=== PATIENT | female | born 1955 | race African-American/Black ===

== ENCOUNTER 2017-03-17 23:34 | Emergency (ER) | payer OTHER ==
[~2017-03-17] VITALS: Ht 167.6 cm; Wt 72.7 kg
[~2017-03-17 23:34] MED LIST: [UNRECOGNIZED DRUG - OTHER] PO
[2017-03-17] MEDS ORDERED: HYDR25TA PO (23:50)
[2017-03-17] MEDS ORDERED: ZOLP5 PO (23:50)
[2017-03-18] MEDS ORDERED: IBUPROFEN 600 MG TABLET PO ONE (00:15)
[2017-03-18] MEDS ORDERED: HYDROCODONE/ACETAMINOPHEN 5-325 MG TABLET PO ONE (01:45)
[2017-03-18 02:10] VITALS: BP 137/74
== END 2017-03-18 02:15 | disposition home or self-care (01) ==
LOC: EMS 23:35
DX: S60.221A Contusion of right hand, initial encounter (principal); I10 Essential (primary) hypertension; W01.0XXA Fall on same level from slipping, tripping and stumbling without subsequent striking against object, initial encounter; Y93.89 Activity, other specified; Y92.89 Other specified places as the place of occurrence of the external cause; Y99.8 Other external cause status
CPT/HCPCS: 99284